=== PATIENT | female | born 1955 | race Caucasian/White ===

== ENCOUNTER 2018-07-26 07:51 | Outpatient (CLI) | payer BC ==
--- NOTE | 2018-07-26 09:22 | MRI ---
MRI LUMBAR SPINE WITH AND WITHOUT CONTRAST: Date: 07/26/2018 COMPARISON: Lumbar spine MRI 06/23/2011. HISTORY: Lumbar radiculopathy, lifting injury. History of partial laminectomy TECHNIQUE: Multiplanar multisequence MR imaging of lumbar spine with and without contrast. FINDINGS: The sagittal STIR imaging demonstrates no focal area of osseous marrow edema. Foci of metallic artifact are noted posteriorly to the left of midline at the L4-5 level. Patient margie ears status post hemilaminectomy on the left at L5. Minimal anterolisthesis of L4 on L5 noted, measuring approximately 3-4 mm. On the basis of 5 lumbar type vertebral bodies, conus medullaris terminates at T12-L1. T12-L1: No central canal or neural foraminal stenosis. L1-2: Mild bilateral facet hypertrophy. Disc space narrowing, disc desiccation, and minimal disc bulg e present. No significant central canal stenosis. There is an annular tear in the left foraminal region. No significant neural foraminal stenosis. L2-3: There is disc space narrowing, disc desiccation, and degenerative endplate change, most promine nt laterally on the right. Bilateral facet hypertrophy present. Left lateral osteophyte formation noted. Mild left neural foraminal stenosis. No central canal or right neural foraminal stenosis. L3-4: There is disc space narrowing and minimal disc bulge. Bilateral facet hypertrophic change noted , right greater than left. No significant central canal or neural foraminal stenosis. L4-5: Disc space narrowing and disc desiccation. Small central annular tear. Prominent bilateral face t hypertrophy. Mild bilateral neural foraminal stenosis. No significant central canal stenosis L5-S1: Bilateral facet hypertrophy. No significant central canal or neural foraminal stenosis. There is some heterogeneity of the uterus, which may be on the basis of uterine fibroids disease. Review of the retroperitoneal structures demonstrates an incompletely visualized adrenal nodule on th e right measuring 1.3 cm. Imaged retroperitoneal structures appear grossly unremarkable otherwise. Probable splenule noted near the pancreatic tail. The postcontrast imaging demonstrates no abnormal enhancement involving the contents of the thecal sa c, nerve roots of the cauda equina, imaged osseous structures, or imaged intervertebral discs. There is lumbar spine levoscoliosis. IMPRESSION: 1. Postoperative and degenerative changes of the lumbar spine as detailed above. 2. Nonspecific right adrenal nodule. This could be better assessed via CT examination of abdomen usi ng an adrenal mass protocol. Code T Transcribed Date/Time: 07/26/2018 9:47 AM
[2018-07-26] MEDS ORDERED: Gadobenate Dimeglumine 529 MG/1 ML (20ML VIAL) ONE (15:53)
== END 2018-07-26 07:52 | disposition home or self-care (01) ==
LOC: SCSMRI 07:51
PROVIDERS: ATTEND Neurological Surgery
DX: M47.26 Other spondylosis with radiculopathy, lumbar region (principal); E27.8 Other specified disorders of adrenal gland; Z98.1 Arthrodesis status
CPT/HCPCS: 72158; 82565; A9577